=== PATIENT | female | born 1945 | race Caucasian/White ===

== ENCOUNTER 2018-05-22 00:49 | Emergency (ER) | payer OTHER, BC ==
[~2018-05-22] VITALS: Ht 180.3 cm; Wt 117.0 kg
[2018-05-22 01:51] VITALS: BP 140/89
== END 2018-05-22 01:51 ==
LOC: EME 00:49
PROC: 09C3XZZ Extirpation of Matter from Right External Auditory Canal, External Approach (ICD-10-PCS; principal; 2018-05-22)
DX: T16.1XXA Foreign body in right ear, initial encounter (principal); E11.9 Type 2 diabetes mellitus without complications; Z89.511 Acquired absence of right leg below knee; Z72.0 Tobacco use
CPT/HCPCS: 99281; 99283